=== PATIENT | male | born 1950 | race Caucasian/White ===

== ENCOUNTER 2023-03-30 16:54 | Emergency (ER) | payer OTHER ==
[~2023-03-30] VITALS: Ht 182.9 cm; Wt 81.6 kg
[2023-03-30 17:00] VITALS: BP_SYST 124
--- NOTE | 2023-03-30 17:10 | NUR ---
Patient to ER bed H1 to gown for evaluation. Side rails up. Report given to GISELLE CORREA.
--- NOTE | 2023-03-30 17:15 | NUR ---
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 LAC IS SUPERFICIAL, NO ACTIVE BLEEDING ON ARRIVAL. PT IS AMBULATORY, AAOX4, VSS
--- NOTE | 2023-03-30 17:20 | NUR ---
ER DR. TAM AT THE BEDSIDE EXAMINING PT
[2023-03-30] MEDS ORDERED: DIPHTH,PERTUSS(ACELL),TET VAC 0.5 ML VIAL (Tdap) I.M. ONE (17:45)
--- NOTE | 2023-03-30 18:01 | NUR ---
Dr Dial aplying dermabond for LAC, R hand , well tolerated
[2023-03-30 18:25] VITALS: BP_SYST 124
--- NOTE | 2023-03-30 18:26 | NUR ---
Patient given written and verbal discharge instructions and verbalizes understanding. ER MD discussed with patient the results and treatment provided. Patient in stable condition. ID arm band removed. No Rx given. Patient educated on pain management and to follow up with PMD. Pain Scale 0/10. Opportunity for questions provided and answered. Medication side effect fact sheet provided.
== END 2023-03-30 18:25 | disposition home or self-care (01) ==
LOC: SED 16:54
DX: S61.411A Laceration without foreign body of right hand, initial encounter (principal); Z79.899 Other long term (current) drug therapy; W29.8XXA Contact with other powered hand tools and household machinery, initial encounter; Y93.89 Activity, other specified; Y92.89 Other specified places as the place of occurrence of the external cause; Y99.8 Other external cause status
CPT/HCPCS: 90715; 99283

== ENCOUNTER 2023-04-07 17:20 | Emergency (ER) | payer OTHER ==
[~2023-04-07] VITALS: Ht 177.8 cm; Wt 87.1 kg
[2023-04-07 17:31] VITALS: BP_SYST 134
--- NOTE | 2023-04-07 17:43 | NUR ---
Pt brought by self, A&Ox4, pt presents to ER for wound check on R hand after prior LAC, pt afebrile, states he needs a clearance to go back to work , denies other complains.
--- NOTE | 2023-04-07 18:10 | NUR ---
Dr Helton evaluating patient at bedside
[2023-04-07] MEDS ORDERED: BACI15OI13 TP (18:36)
[2023-04-07 18:40] VITALS: BP_SYST 134
--- NOTE | 2023-04-07 18:41 | NUR ---
Patient given written and verbal discharge instructions and verbalizes understanding. ER MD discussed with patient the results and treatment provided. Patient in stable condition. ID arm band removed. Rx of neosporin given. Patient educated on pain management and to follow up with PMD. Pain Scale 0/10 Opportunity for questions provided and answered. Medication side effect fact sheet provided.
== END 2023-04-07 18:40 | disposition home or self-care (01) ==
LOC: SED 17:20
DX: S60.511A Abrasion of right hand, initial encounter (principal); Z48.00 Encounter for change or removal of nonsurgical wound dressing; Z79.899 Other long term (current) drug therapy; X58.XXXA Exposure to other specified factors, initial encounter; Y93.89 Activity, other specified; Y92.89 Other specified places as the place of occurrence of the external cause; Y99.8 Other external cause status
CPT/HCPCS: 99282